=== PATIENT | male | born 1995 | race Caucasian/White ===

== ENCOUNTER 2017-02-02 18:46 | Observation (INO) ==
[2017-02-02] MEDS ORDERED: 0.9 % Sodium Chloride 1,000 ML IVC ONE (19:10)
[2017-02-02] MEDS ORDERED: *HR* Morphine 2 MG/ML SYRINGE IVP ONE ×2 (19:10→21:28)
[2017-02-02] MEDS ORDERED: Ondansetron 4 MG/2 ML VIAL IVP ONE (19:10)
--- NOTE | 2017-02-02 19:14 | Emergency Department Note ---
Disposition Clinical Impression: Appendicitis, acute Qualifiers: Acute appendicitis type: with localized peritonitis Qualified Code(s): K35.3 - Acute appendicitis with localized peritonitis Disposition: Admitted As Inpatient Abdominal Pain HPI - General Chief Complaint: ED Abdominal Pain Stated Complaint: ABD Pain Time Seen by Provider: 02/02/17 19:04 Source: patient Nursing Notes Reviewed: Yes Vital Signs Reviewed: Yes - History of Present Illness HPI Narrative: Mr. Lofton, a previously healthy 21-year-old male, presents from home by POV for evaluation of abdominal pain. Onset one hour prior to arrival. Located in these mid epigastrium with radiation to his right lower quadrant. Described as sharp, stabbing, constant. He is never experienced anything like this before. Nothing noted to relieve his symptoms. Worse when supine. Associated with nausea, vomiting. His last by mouth intake was 2 hours prior to arrival. He is still passing flatus. PMH: None PSH: None Habits: Occasional smoker, no alcohol, no illicit ROS: Positive: Nausea, vomiting, abdominal pain Negative: Fever, chills, difficulty with urination, belching, back pain, flank pain Pain Scale: 10 - Related Data Home Medications Medication Instructions Recorded Confirmed No Known Home Drugs 02/02/17 02/02/17 Allergies Allergy/AdvReac Type Severity Reaction Status Date / Time No Known Allergies Allergy Verified 02/02/17 21:46 All systems ED: reviewed and negative except as stated. Abdominal Pain PMH - Past Medical History Medical history: Reports: no medical history Male Surgical History: Reports: no surgical history Psychiatric history: Reports: no psych history - Social History Smoking status: Current every day smoker Alcohol use: Reports: none Drug use: Reports: none Physical Exam Vital Signs Reviewed General: Patient is alert, oriented, and in obvious discomfort; he is unable to find a position of comfort. HEENT: No facial asymmetry. Head is normocephalic and atraumatic. PERRLA. Trachea midline. Cardiovascular: Heart regular rate and rhythm without clicks, rubs, gallops, or murmurs. No JVD. PMI nondisplaced. Respiratory: Symmetric chest rise with good respiratory effort. Bilateral breath sounds are clear without wheezing, crackles, or rhonchi. Abdomen: Abdomen flat. Bowel sounds present normoactive x-4 quadrants. Abdomen is soft, nondistended. Periumbilical and right lower quadrant pain with guarding. Negative Rosving, negative Perryman, negative iliopsoas. Psych: Patient's affect is appropriate for situation. - General Limitations: no limitations General appearance: alert, in no apparent distress Course Course Narrative: Patient's clinical exam and story are concerning for appendicitis. CT abdomen and pelvis without contrast. Will provide IV fluids, pain control, nausea control. Laboratory work indicates leukocytosis of 18.6. CT concerning for appendicitis. I updated the patient, his mother, and father were not bedside. They have no additional questions or concerns at this time. Abdomen/Pelvis CT 02/02/17 19:11 IMPRESSION: Findings consistent with acute appendicitis. D/ / Frankie Hercules MD / Frankie Hercules MD Interpreting Provider: Frankie Hercules MD I spoke with the on-call surgeon, Dr. Hoff, who agreed to see the patient and will accept him to his service. Dr. Hoff will take the patient from the ER to the operatory room. Vital Signs Temperature 97.6 F 02/02/17 18:50 Pulse Rate 70 02/02/17 18:50 Respiratory Rate 16 02/02/17 18:50 Blood Pressure 117/78 02/02/17 18:50 O2 Sat by Pulse Oximetry 99 02/02/17 18:50 Temperature 97.9 F 02/03/17 07:01 Pulse Rate 70 02/03/17 07:01 Respiratory Rate 16 02/03/17 07:01 Blood Pressure 114/56 02/03/17 07:01 O2 Sat by Pulse Oximetry 96 02/03/17 07:01 Oxygen Delivery Oxygen Delivery Room Air Abdominal Pain - Lab Data Result diagrams: 02/03/17 04:52 02/03/17 04:52 Lab Results 02/02/17 02/02/17 02/02/17 Range/Units 19:49 19:49 19:49 WBC 18.3 H (4.3-11.1) K/mcL RBC 5.50 (4.19-5.50) M/mcL Hgb 16.7 (12.9-16.9) g/dL Hct 47.7 (37.5-50.1) % MCV 86.7 (83.0-100.0) fL MCH 30.4 (28.0-33.3) pg MCHC 35.0 (31.6-35.5) g/dL RDW 12.5 (11.5-14.5) % Plt Count 215 (140-400) K/mcL MPV 10.2 (9.4-12.4) fL Immature Gran % 0.5 (0-4) % Seg Neutrophils % 86.8 % Lymphocytes % 6.1 % Monocytes % 6.0 % Eosinophils % 0.3 % Basophils % 0.3 % Neutrophils # 15.9 H (1.6-8.9) K/mcL Lymphocytes # 1.1 (0.6-4.6) K/mcL Monocytes # 1.1 (0.0-1.3) K/mcL Eosinophils # 0.1 (0.0-0.6) K/mcL Basophils # 0.1 (0.0-0.2) K/mcL PT 13.8 H (9.4-12.1) Seconds INR 1.3 APTT 28.6 (26.0-36.0) Seconds Sodium 139 (136-145) mEq/L Potassium 3.5 (3.5-4.5) mEq/L Chloride 105 (98-109) mEq/L Carbon Dioxide 23 (19-29) mEq/L BUN 10 (8-26) mg/dL Creatinine 0.92 (0.72-1.25) mg/dL Est GFR ( Amer) > 60 (> 60) Est GFR (Non-Af Amer) > 60 (> 60) BUN/Creatinine Ratio 11 (6-26) Glucose 87 (70-99) mg/dL Calculated Osmolality 286 (280-300) Calcium 9.5 (8.6-10.8) mg/dL Total Bilirubin 1.4 H (0.2-1.2) mg/dL Direct Bilirubin 0.5 (0.0-0.5) mg/dL Indirect Bilirubin 0.9 (0.0-1.2) mg/dL AST 17 (5-34) Units/L ALT 12 (0-55) Units/L Alkaline Phosphatase 74 (38-126) Units/L Serum Total Protein 7.6 (6.0-8.3) g/dL Albumin 4.5 (3.5-5.0) g/dL Globulin 3.1 (2.4-3.5) g/dL Albumin/Globulin Ratio 1.5 (1.1-2.2) Lipase 7 L (8-78) Units/L Urine Color (Yellow) Urine Clarity (Clear) Urine pH (5.0-8.0) pH Units Ur Specific [place] (1.010-1.025) Urine Protein (Neg-Trace) mg/dL Urine Glucose (UA) (Normal) mg/dL Urine Ketones (Negative) mg/dL Urine Blood (Negative) Urine Nitrite (Negative) Urine Bilirubin (Negative) Urine Urobilinogen (Normal) mg/dL Ur Leukocyte Esterase (Negative) Urine Microscopic RBC (0-3) per hpf Urine Microscopic WBC (0-3) per hpf Ur Squamous Epith Cells (None-Few) per lpf Amorphous Sediment (Few) Urine Bacteria (None-Few) per hpf Hyaline Casts (None-Few) per lpf Ur Culture Indicated? (NO) Blood Type Antibody Screen 02/02/17 02/02/17 Range/Units 19:49 20:18 WBC (4.3-11.1) K/mcL RBC (4.19-5.50) M/mcL Hgb (12.9-16.9) g/dL Hct (37.5-50.1) % MCV (83.0-100.0) fL MCH (28.0-33.3) pg MCHC (31.6-35.5) g/dL RDW (11.5-14.5) % Plt Count (140-400) K/mcL MPV (9.4-12.4) fL Immature Gran % (0-4) % Seg Neutrophils % % Lymphocytes % % Monocytes % % Eosinophils % % Basophils % % Neutrophils # (1.6-8.9) K/mcL Lymphocytes # (0.6-4.6) K/mcL Monocytes # (0.0-1.3) K/mcL Eosinophils # (0.0-0.6) K/mcL Basophils # (0.0-0.2) K/mcL PT (9.4-12.1) Seconds INR APTT (26.0-36.0) Seconds Sodium (136-145) mEq/L Potassium (3.5-4.5) mEq/L Chloride (98-109) mEq/L Carbon Dioxide (19-29) mEq/L BUN (8-26) mg/dL Creatinine (0.72-1.25) mg/dL Est GFR ( Amer) (> 60) Est GFR (Non-Af Amer) (> 60) BUN/Creatinine Ratio (6-26) Glucose (70-99) mg/dL Calculated Osmolality (280-300) Calcium (8.6-10.8) mg/dL Total Bilirubin (0.2-1.2) mg/dL Direct Bilirubin (0.0-0.5) mg/dL Indirect Bilirubin (0.0-1.2) mg/dL AST (5-34) Units/L ALT (0-55) Units/L Alkaline Phosphatase (38-126) Units/L Serum Total Protein (6.0-8.3) g/dL Albumin (3.5-5.0) g/dL Globulin (2.4-3.5) g/dL Albumin/Globulin Ratio (1.1-2.2) Lipase (8-78) Units/L Urine Color Yellow (Yellow) Urine Clarity Turbid A (Clear) Urine pH 8.0 (5.0-8.0) pH Units Ur Specific [place] 1.030 H (1.010-1.025) Urine Protein Trace (Neg-Trace) mg/dL Urine Glucose (UA) Normal (Normal) mg/dL Urine Ketones 15 H (Negative) mg/dL Urine Blood Negative (Negative) Urine Nitrite Negative (Negative) Urine Bilirubin Negative (Negative) Urine Urobilinogen Normal (Normal) mg/dL Ur Leukocyte Esterase Negative (Negative) Urine Microscopic RBC 0-3 (0-3) per hpf Urine Microscopic WBC 0-3 (0-3) per hpf Ur Squamous Epith Cells Moderate H (None-Few) per lpf Amorphous Sediment Many H (Few) Urine Bacteria None Seen (None-Few) per hpf Hyaline Casts None Seen (None-Few) per lpf Ur Culture Indicated? NO (NO) Blood Type A POSITIVE Antibody Screen NEGATIVE Attestation Statement - Attestation Attestation: I, Brent Mccoy, examined this patient and my medical decision-making was reviewed with the [employer]OMAT[employer] PA[employer]KER/PA/Advanced Practice Nurse/Resident Physician. I agree with the documented findings, disposition and treatment plan as described except to the extent set forth below. 21-year-old male presents with concerns of right lower quadrant abdominal pain. Patient states pain started about 1-2 hours prior to arrival. Last meal was about 2-2-1/2 hours prior to arrival. Patient has significant tenderness to palpation of the right lower quadrant with rigidity and guarding. CT of the abdomen shows acute appendicitis. Patient has a leukocytosis. He is tachycardic. He was taken to the OR by Dr. Hoff for further care.
[2017-02-02 19:56] LABS: Basophils # 0.1 K/mcL (0.0-0.2); Basophils % 0.3 %; Eosinophils # 0.1 K/mcL (0.0-0.6); Eosinophils % 0.3 %; Hematocrit 47.7 % (37.5-50.1); Hemoglobin 16.7 g/dL (12.9-16.9); Immature Granulocytes % 0.5 % (0-4); Lymphocytes # 1.1 K/mcL (0.6-4.6); Lymphocytes % 6.1 %; Mean Corpuscular Hemoglobin 30.4 pg (28.0-33.3); Mean Corpuscular Volume 86.7 fL (83.0-100.0); Mean Platelet Volume 10.2 fL (9.4-12.4); Monocytes # 1.1 K/mcL (0.0-1.3); Neutrophils # 15.9 K/mcL (1.6-8.9); Platelet Count 215 K/mcL (140-400); Red Cell Distribution Width 12.5 % (11.5-14.5); Segmented Neutrophils % 86.8 %
[2017-02-02 20:07] LABS: INR 1.3; Prothrombin Time 13.8 Seconds (9.4-12.1)
[2017-02-02 20:09] LABS: Activated Partial Thrombo Time 28.6 Seconds (26.0-36.0)
[2017-02-02 20:13] LABS: Alanine Aminotransferase 12 Units/L (0-55); Albumin 4.5 g/dL (3.5-5.0); Albumin/Globulin Ratio 1.5 (1.1-2.2); Alkaline Phosphatase 74 Units/L (38-126); Aspartate Amino Transferase 17 Units/L (5-34); BUN/Creatinine Ratio 11 (6-26); Bilirubin,Direct 0.5 mg/dL (0.0-0.5); Bilirubin,Indirect 0.9 mg/dL (0.0-1.2); Bilirubin,Total 1.4 mg/dL (0.2-1.2); Blood Urea Nitrogen 10 mg/dL (8-26); Calcium 9.5 mg/dL (8.6-10.8); Carbon Dioxide 23 mEq/L (19-29); Chloride 105 mEq/L (98-109); Globulin 3.1 g/dL (2.4-3.5); Glucose 87 mg/dL (70-99); Lipase 7 Units/L (8-78); Osmolality,Calculated 286 (280-300); Potassium 3.5 mEq/L (3.5-4.5); Sodium 139 mEq/L (136-145); Total Protein 7.6 g/dL (6.0-8.3); eGFR For African Americans > 60 (> 60); eGFR For Non-African Americans > 60 (> 60)
[2017-02-02 20:26] LABS: Bilirubin,Urine Negative (Negative); Blood,Urine Negative (Negative); Clarity,Urine Turbid (Clear); Color,Urine Yellow (Yellow); Glucose,Urine (UA) Normal (Normal); Ketones,Urine 15 mg/dL (Negative); Leukocyte Esterase,Urine Negative (Negative); Nitrite,Urine Negative (Negative); Protein,Urine Trace mg/dL (Neg-Trace); Urobilinogen,Urine Normal (Normal)
[2017-02-02 20:28] LABS: Bacteria,Urine None Seen per hpf (None-Few); Hyaline Casts,Urine None Seen per lpf (None-Few); RBC,Urine 0-3 per hpf (0-3); Squamous Epithelial Cell,Urine Moderate per lpf (None-Few); WBC,Urine 0-3 per hpf (0-3)
[2017-02-02 20:39] LABS: Amorphous Sediment,Urine Many (Few)
--- NOTE | 2017-02-02 21:48 | General Surg History&Physical ---
Date of Encounter: 02/02/17 Time of Encounter: 21:40 Assessment and Plan (1) Acute appendicitis with localized peritonitis Current Visit: Yes Status: Acute The assessment and plan as outlined above was discussed with the patient and/or family members who expressed understanding and agreement. All questions were answered. The patient presented with typical history of acute appendicitis as well as CAT scan evidence of acute appendicitis and leukocytosis. Physical examination confirms localized rebound tenderness and guarding in the right lower quadrant at McBurney's point. We will plan urgent appendectomy. I discussed risks and benefits of surgery and the patient wishes to proceed History of Present Illness Chief complaint: Abdominal pain HPI: Mr. Lofton is a 21 year old male He developed abdominal pain 5 hours ago. He initially developed central abdominal pain associated with nausea. This eventually migrated and localized to the right lower quadrant. He has pain with motion and pain during ambulation. He denies shakes chills or fever. He did have nausea but no vomiting. He has no previous abdominal pain syndromes. He has had no previous abdominal surgery. He presented to the emergency room for evaluation. Evaluation demonstrated leukocytosis of 18,000 and CAT scan evidence of acute appendicitis. He now presents for urgent appendectomy Past Med Surg Social Fam HX - Past Medical History Medical history: no medical history Psychiatric history: no psych history - Social History Smoking Status: Current every day smoker Smokeless Tobacco Status: No Alcohol use: none Drug use: none Medications and Allergies No Known Home Drugs 02/02/17 [History] Allergies No Known Allergies Allergy (Verified 02/02/17 21:46) Review of Systems All systems PM: A 10-system review of systems was performed and is negative for pertinent findings except as documented above in the HPI. General Surgery Exam Initial Vital Signs Temp Pulse Resp BP Pulse Ox 97.6 F 70 16 117/78 99 02/02/17 18:50 02/02/17 18:50 02/02/17 18:50 02/02/17 18:50 02/02/17 18:50 - General physical appearance well developed, well nourished, no distress - ENT normal pinna, normal nares, normal mucosa, no hearing loss, no congestion - Neck no masses, no bruits, trachea midline, no lymphadectomy, no venous distension - Respiratory normal expansion, normal respiratory effort, clear to percussion, clear to auscultation - Cardiovascular Cardiovascular exam: Present: RRR, 15, 16 - Abdomen Abdomen general surgery: Present: tender, guarding, rebound Abdominal Tenderness: Present: RLQ - Neurologic Present: CN 2-12 grossly intact, normal coordination, normal sensation - Psychiatric Psychiatric general surgery: Present: appropriate, oriented to person, oriented to place, oriented to time, speech is normal, memory intact Results - Labs 02/02/17 19:49 02/02/17 19:49 Abnormal lab results WBC 18.3 K/mcL (4.3-11.1) H 02/02/17 19:49 Neutrophils # 15.9 K/mcL (1.6-8.9) H 02/02/17 19:49 PT 13.8 Seconds (9.4-12.1) H 02/02/17 19:49 Total Bilirubin 1.4 mg/dL (0.2-1.2) H 02/02/17 19:49 Lipase 7 Units/L (8-78) L 02/02/17 19:49 Urine Clarity Turbid (Clear) A 02/02/17 20:18 Ur Specific [place] 1.030 (1.010-1.025) H 02/02/17 20:18 Urine Ketones 15 mg/dL (Negative) H 02/02/17 20:18 Ur Squamous Epith Cells Moderate per lpf (None-Few) H 02/02/17 20:18 Amorphous Sediment Many (Few) H 02/02/17 20:18 Diabetes panel 02/02/17 Range/Units 19:49 Sodium 139 (136-145) mEq/L Potassium 3.5 (3.5-4.5) mEq/L Chloride 105 (98-109) mEq/L Carbon Dioxide 23 (19-29) mEq/L BUN 10 (8-26) mg/dL Creatinine 0.92 (0.72-1.25) mg/dL Glucose 87 (70-99) mg/dL Calcium 9.5 (8.6-10.8) mg/dL AST 17 (5-34) Units/L ALT 12 (0-55) Units/L Alkaline Phosphatase 74 (38-126) Units/L Albumin 4.5 (3.5-5.0) g/dL Calcium panel 02/02/17 Range/Units 19:49 Calcium 9.5 (8.6-10.8) mg/dL Albumin 4.5 (3.5-5.0) g/dL Pituitary panel 02/02/17 Range/Units 19:49 Sodium 139 (136-145) mEq/L Potassium 3.5 (3.5-4.5) mEq/L Chloride 105 (98-109) mEq/L Carbon Dioxide 23 (19-29) mEq/L BUN 10 (8-26) mg/dL Creatinine 0.92 (0.72-1.25) mg/dL Glucose 87 (70-99) mg/dL Calcium 9.5 (8.6-10.8) mg/dL Adrenal panel 02/02/17 Range/Units 19:49 Sodium 139 (136-145) mEq/L Potassium 3.5 (3.5-4.5) mEq/L Chloride 105 (98-109) mEq/L Carbon Dioxide 23 (19-29) mEq/L BUN 10 (8-26) mg/dL Creatinine 0.92 (0.72-1.25) mg/dL Glucose 87 (70-99) mg/dL Calcium 9.5 (8.6-10.8) mg/dL Total Bilirubin 1.4 H (0.2-1.2) mg/dL AST 17 (5-34) Units/L ALT 12 (0-55) Units/L Alkaline Phosphatase 74 (38-126) Units/L Albumin 4.5 (3.5-5.0) g/dL All other labs normal. - Imaging CT scan - abdomen: image reviewed (I personally reviewed the CAT scan abdomen. The appendix is dilated with periappendiceal inflammation)
--- NOTE | 2017-02-02 21:49 | Anesthesia Evaluation PreOp ---
Date of Encounter: 02/02/17 Time of Encounter: 22:10 - Past History Planned Operation: Lap Appy Cardiac History: Denies any Significant Hx Pulmonary History: Smoker INVASIVE MANAGER History: Denies Any Significant HX Other Medical History: Denies Any Significant HX Anesthesia History: Past Anesthesia (No prior GA), MH ( NO FamHx of MH) Alcohol Use: none Drug use: marijuana (Daily MJ) Medications and Allergies No Known Home Drugs 02/02/17 [History] Allergies No Known Allergies Allergy (Verified 02/02/17 21:46) - Meds/Allergy Pre-op Review Medications Reviewed: Yes Allergies Reviewed: Yes Beta Blockers on Current Med List: No Anesthesia Results - Labs 02/02/17 19:49 02/02/17 19:49 Laboratory Results Impressions Abdomen/Pelvis CT 02/02/17 19:11 IMPRESSION: Findings consistent with acute appendicitis. D/ / Frankie Hercules MD / Frankie Herculse MD Interpreting Provider: Frankie Hercules MD Anesthesia Exam Vital Signs/O2 Sat/Glucose, Most Current O2 Sat Height 1.8 m Weight 65.771 kg O2 Sat by Pulse Oximetry 99 Vital Signs Temp Pulse Resp BP Pulse Ox 97.6 F 70 16 117/78 99 02/02/17 18:50 02/02/17 18:50 02/02/17 18:50 02/02/17 18:50 02/02/17 18:50 Height: 5'11" Weight: 145# BMI = 20 - HEENT Pupil (Motor): Pupils equal, EOMI Mallampati: II Teeth: Normal Oral Opening: Greater than 3 - INVASIVE MANAGER LOC: Oriented INVASIVE MANAGER Motor: Normal RUE, Normal LUE, Normal RLE, Normal LLE, Normal Face INVASIVE MANAGER Sensory: Normal: RUE, LUE, RLE, LLE, Face - Cardiac Rhythm: Regular Murmur: None - Pulmonary Breath Sounds: bilateral Clear Respiratory Effort: Symmetrical Anesthesia Assess/Plan ASA Score: 2, E Modified Anali Scale for Level of Consciousness: Cooperative, oriented, and tranquil Anesthetic Plan: General Monitoring Plan: Standard Monitors Recovery Plan: PACU Anes Supervising Prov Stmt: Pt seen/evaluated, R&B Discussed, questions answered and consent obtained. - MD Diane
[2017-02-02] MEDS ORDERED: Ringers Solution, Lactated 1,000 ML ONE (21:55)
[2017-02-02] MEDS ORDERED: Albuterol 2.5 MG/3 ML NEBULIZER IH ONE (21:59)
[2017-02-02] MEDS ORDERED: Albuterol 2.5 MG/3 ML NEBULIZER ONE (21:59)
[2017-02-02] MEDS ORDERED: *HR* Succinylcholine 200 MG/10 ML VIAL IVP ONE (22:00)
[2017-02-02] MEDS ORDERED: *HR* Rocuronium Bromide 50 MG/5 ML VIAL ONE (22:00)
[2017-02-02] MEDS ORDERED: Lidocaine -MPF 4% 5 ML AMPUL ONE (22:00)
[2017-02-02] MEDS ORDERED: Lidocaine -MPF 2% 2 ML VIAL ONE ×2 (22:00→22:01)
[2017-02-02] MEDS ORDERED: CefOXitin 2,000 MG VIAL IVPB ONE (22:01)
[2017-02-02] MEDS ORDERED: *HR* Midazolam HCl 2 MG/2 ML VIAL ONE (22:01)
[2017-02-02] MEDS ORDERED: CefOXitin 1,000 MG VIAL ONE (22:01)
[2017-02-02] MEDS ORDERED: *HR* Propofol 200 MG/20 ML VIAL IVP ONE (22:01)
[2017-02-02] MEDS ORDERED: *HR* FentaNYL (PF) 100 MCG/2 ML VIAL ONE (22:01)
[2017-02-02] MEDS ORDERED: Acetaminophen IV 1,000 MG/100 ML INFUS..BTL ONE (22:19)
[2017-02-02] MEDS ORDERED: Famotidine 20 MG/2 ML VIAL ONE (22:28)
[2017-02-02] MEDS ORDERED: Dexamethasone 4 MG/ML VIAL ONE (23:00)
[2017-02-02] MEDS ORDERED: Ondansetron 4 MG/2 ML VIAL ONE (23:00)
[2017-02-02] MEDS ORDERED: Ketorolac 30 MG/ML VIAL ONE ×2 (23:08)
[2017-02-02] MEDS ORDERED: Neostigmine Methylsulfate 3 MG/3 ML SYRINGE ONE (23:08)
[2017-02-02] MEDS ORDERED: *HR* HYDROmorphone 2 MG/ML SYRINGE ONE (23:15)
--- NOTE | 2017-02-02 23:31 | Operative Note ---
Date of procedure: 02/02/17 Pre-op diagnosis: Acute appendicitis Post-op diagnosis: same Procedure: Laparoscopic appendectomy Anesthesia: KEILA Surgeon: Warner Hoff Estimated blood loss (cc): 10 Specimen: Appendix Condition: stable Disposition: PACU Procedure in Detail: After informed consent patient was taken major suite and placed supine position and given adequate anesthetic. The abdomen is prepped and draped in sterile fashion utilizing ChloraPrep standard draping techniques. Time out is taken patient was identified. Made a vertical midline incision below the umbilicus and dissected down fashion. 2 traction stitches were placed. Abdomen was entered initially. I placed a Ahmadi trocar. The patient had a necrotic appendix that was retrocecal. The cecum was mobilized by dividing the lateral peritoneal attachments. The blood supply to the appendix was spread out as is typical for retrocecal appendicitis. The appendix was divided off the base of the cecum with a gastrointestinal load for the laparoscopic stapler. The blood supply was divided with 3 loads of vascular carlos. All staple lines were intact and there was no bleeding. The appendix was recovered for pathologic evaluation. I irrigated with copious amounts of antibiotic containing solution. There is no evidence of bleeding or staple line leak. All trochars were removed fascia was closed with 0 Vicryl skin with 2-0 Vicryl and 4-0 Vicryl.
[2017-02-02] MEDS ORDERED: *HR* Labetalol 20 MG/4 ML SYRINGE IVP PRN (23:49)
[2017-02-02] MEDS ORDERED: *HR* Promethazine 25 MG/ML VIAL IVP PRN (23:49)
[2017-02-02] MEDS ORDERED: *HR* HYDROmorphone (PF) 1 MG/ML SYRINGE IVP PRN (23:49)
--- NOTE | 2017-02-03 00:25 | Anesthesia Evaluation Post Op ---
Date of Encounter: 02/03/17 Time of Encounter: 00:24 - Vital Signs Vital Signs: Vital Signs/O2 Sat/Glucose, Most Current Temp Pulse Resp BP Pulse Ox 02/03/17 00:07 98.3 F 73 16 128/63 98 02/02/17 23:57 61 12 108/66 98 02/02/17 23:47 66 12 103/68 97 02/02/17 23:37 99.1 F 67 18 93/55 97 02/02/17 21:53 18 125/84 - Lungs Lungs: Clear Ascult./Percussion - Airway Airway: Non-obstructed - Cardiovascular Regular Rate - Mental Status Mental Status: Alert & Oriented, Answers Appropriately - Pain Pain Scale: 0 Pain Scale used: Numeric (1 - 10) - Nausea Vomiting Nausea Vomiting: Not Present - Hydration Hydration: Ice chips, Has not voided - Discharge PostOp Status: Transfer Patient to floor Anes Supervising Prov Stmt: Pt seen/evaluated, VSS and pt has met criteria for discharge to floor. - MD Diane
[2017-02-03] MEDS ORDERED: *HR* HYDROmorphone (PF) 1 MG/ML SYRINGE IVP PRN ×2 (00:28→14:20)
[2017-02-03] MEDS ORDERED: Ondansetron 4 MG/2 ML VIAL IVP PRN (00:28)
[2017-02-03] MEDS ORDERED: cefOXitin 2,000 MG in D5% in Water (Mini-Bag+) 100 ML IVPB SCH (00:28)
[2017-02-03] MEDS: 0.9 % Sodium Chloride 1,000 ML IVC SCH ×2 (01:16→21:26)
[2017-02-03] MEDS: *HR* OxyCODONE/APAP 5/325 TABLET PO PRN ×5 (01:22→22:24)
[2017-02-03] MEDS: cefOXitin 2,000 MG in D5% in Water (Mini-Bag+) 100 ML IVPB SCH ×3 (05:10→22:21)
[2017-02-03 05:16] LABS: Hematocrit 42.7 % (37.5-50.1); Hemoglobin 14.7 g/dL (12.9-16.9); Mean Corpuscular HGB Conc 34.4 g/dL (31.6-35.5); Mean Corpuscular Hemoglobin 30.1 pg (28.0-33.3); Mean Corpuscular Volume 87.3 fL (83.0-100.0); Mean Platelet Volume 10.1 fL (9.4-12.4); Platelet Count 243 K/mcL (140-400); Red Blood Count 4.89 M/mcL (4.19-5.50); Red Cell Distribution Width 12.4 % (11.5-14.5)
[2017-02-03 05:26] LABS: BUN/Creatinine Ratio 10 (6-26); Blood Urea Nitrogen 9 mg/dL (8-26); Calcium 9.1 mg/dL (8.6-10.8); Carbon Dioxide 21 mEq/L (19-29); Chloride 105 mEq/L (98-109); Glucose 157 mg/dL (70-99); Osmolality,Calculated 280 (280-300); Potassium 4.4 mEq/L (3.5-4.5); Sodium 134 mEq/L (136-145); eGFR For African Americans > 60 (> 60); eGFR For Non-African Americans > 60 (> 60)
[2017-02-03 07:31] LABS: Neutrophils # 23.5 K/mcL (1.6-8.9); Platelet Estimate Normal (Normal)
--- NOTE | 2017-02-03 14:11 | General Surgery Progress Note ---
<Julisa Wilson - Last Filed: 02/03/17 14:09> Date of Encounter: 02/03/17 Time of Encounter: 14:00 - Assessment and Plan (1) Appendicitis, acute Current Visit: Yes Status: Acute POD #1 Laparoscopic appendectomy IV antibiotics- Cefoxitin IV fluids- 50ml/hour Supportive care and pain control Increase activity as tolerated- ambulate in hallways Repeat am labs Qualifiers: Acute appendicitis type: with localized peritonitis Qualified Code(s): K35.3 - Acute appendicitis with localized peritonitis (2) Leukocytosis Current Visit: Yes Status: Acute Continue IV antibiotics through today- Cefoxitin Repeat am labs Qualifiers: Leukocytosis type: bandemia Qualified Code(s): D72.825 - Bandemia (3) DVT prophylaxis Current Visit: Yes Status: Acute Ambulate hallways TID Subjective Patient reports: feels better, still having pain (post surgical- well controlled ), tolerating liquids well, voiding w/o difficulty, flatus, afebrile Objective Vital Signs - Last 8 Hours Temp Pulse Resp BP Pulse Ox 02/03/17 11:47 98.0 F 71 16 105/60 95 02/03/17 07:01 97.9 F 70 16 114/56 96 Intake and Output 02/02/17 02/03/17 02/03/17 23:59 07:59 15:59 Intake Total 100 / 100 120 / 120 Output Total 20 / 20 Balance -20 / -20 100 / 100 120 / 120 Intake: IV Fluids 100 / 100 Mefoxin 2,000 MG In 100 / 100 Dextrose 5% (Minibag+) 100 ML 100 ML @ 200 mls/ hr IVPB Q8H [facility] Rx#: [id number] Oral 120 / 120 Output: Estimated Blood Loss 20 / 20 Other: Meal Lunch Percent of Meal Consumed 0% Weight 71.35 kg Patient Weight 02/03/17 23:59 Weight 71.35 kg - General physical appearance well developed, well nourished, no distress - Eyes normal ocular movement - ENT normal mucosa, atraumatic, normocephalic - Neck Neck exam: trachea midline - Respiratory normal respiratory effort, clear to auscultation - Cardiovascular Cardiovascular exam: Present: RRR - Abdomen Abdomen: Present: bowel sounds present, soft, tender (Expected postoperative tenderness) - Incision Incision: Present: clean and dry, intact - Neurologic CN 2-12 grossly intact - Psychiatric oriented to time, oriented to person, oriented to place, speech is normal, memory intact - Labs 02/03/17 04:52 02/03/17 04:52 Diabetes panel 02/03/17 Range/Units 04:52 Sodium 134 L (136-145) mEq/L Potassium 4.4 (3.5-4.5) mEq/L Chloride 105 (98-109) mEq/L Carbon Dioxide 21 (19-29) mEq/L BUN 9 (8-26) mg/dL Creatinine 0.86 (0.72-1.25) mg/dL Glucose 157 H (70-99) mg/dL Calcium 9.1 (8.6-10.8) mg/dL Calcium panel 02/03/17 Range/Units 04:52 Calcium 9.1 (8.6-10.8) mg/dL Pituitary panel 02/03/17 Range/Units 04:52 Sodium 134 L (136-145) mEq/L Potassium 4.4 (3.5-4.5) mEq/L Chloride 105 (98-109) mEq/L Carbon Dioxide 21 (19-29) mEq/L BUN 9 (8-26) mg/dL Creatinine 0.86 (0.72-1.25) mg/dL Glucose 157 H (70-99) mg/dL Calcium 9.1 (8.6-10.8) mg/dL Adrenal panel 02/03/17 Range/Units 04:52 Sodium 134 L (136-145) mEq/L Potassium 4.4 (3.5-4.5) mEq/L Chloride 105 (98-109) mEq/L Carbon Dioxide 21 (19-29) mEq/L BUN 9 (8-26) mg/dL Creatinine 0.86 (0.72-1.25) mg/dL Glucose 157 H (70-99) mg/dL Calcium 9.1 (8.6-10.8) mg/dL - VTE Documentation of Mechanical Device: Intermittent pneumatic compression device Consult Discharge Plan - Plan Referrals: NO,PCP [Primary Care Provider] - - Attending Attestation I examined this patient and my medical decision-making was reviewed with the [employer] GUN HAND/PA/Advanced Practice Nurse/Resident Physician. I agree with the documented findings, disposition and treatment plan as described except to the extent set forth below. <Luis Eduardo,Warner T - Last Filed: 02/03/17 16:54> Date of Encounter: 02/03/17 - Assessment and Plan (1) Acute appendicitis with localized peritonitis Current Visit: Yes Status: Acute Objective Vital Signs - Last 8 Hours Temp Pulse Resp BP Pulse Ox 02/03/17 15:13 98.2 F 92 17 110/58 96 02/03/17 11:47 98.0 F 71 16 105/60 95 Intake and Output 02/03/17 02/03/17 02/03/17 07:59 15:59 23:59 Intake Total 100 / 100 120 / 120 Balance 100 / 100 120 / 120 Intake: IV Fluids 100 / 100 Mefoxin 2,000 MG In 100 / 100 Dextrose 5% (Minibag+) 100 ML 100 ML @ 200 mls/ hr IVPB Q8H [facility] Rx#: [id number] Oral 120 / 120 Other: Meal Lunch Percent of Meal Consumed 0% Weight 71.35 kg Patient Weight 02/03/17 23:59 Weight 71.35 kg - Labs 02/03/17 04:52 02/03/17 04:52 Diabetes panel 02/03/17 Range/Units 04:52 Sodium 134 L (136-145) mEq/L Potassium 4.4 (3.5-4.5) mEq/L Chloride 105 (98-109) mEq/L Carbon Dioxide 21 (19-29) mEq/L BUN 9 (8-26) mg/dL Creatinine 0.86 (0.72-1.25) mg/dL Glucose 157 H (70-99) mg/dL Calcium 9.1 (8.6-10.8) mg/dL Calcium panel 02/03/17 Range/Units 04:52 Calcium 9.1 (8.6-10.8) mg/dL Pituitary panel 02/03/17 Range/Units 04:52 Sodium 134 L (136-145) mEq/L Potassium 4.4 (3.5-4.5) mEq/L Chloride 105 (98-109) mEq/L Carbon Dioxide 21 (19-29) mEq/L BUN 9 (8-26) mg/dL Creatinine 0.86 (0.72-1.25) mg/dL Glucose 157 H (70-99) mg/dL Calcium 9.1 (8.6-10.8) mg/dL Adrenal panel 02/03/17 Range/Units 04:52 Sodium 134 L (136-145) mEq/L Potassium 4.4 (3.5-4.5) mEq/L Chloride 105 (98-109) mEq/L Carbon Dioxide 21 (19-29) mEq/L BUN 9 (8-26) mg/dL Creatinine 0.86 (0.72-1.25) mg/dL Glucose 157 H (70-99) mg/dL Calcium 9.1 (8.6-10.8) mg/dL - Attending Attestation The patient is seen and evaluated on morning rounds. Although the patient feels better and his vital signs are stable his white blood cell count went up. I think it is reasonable to continue IV antibiotics for at least another 24 hours and monitor his CBC tomorrow morning. We will advance his diet. Incisions are clean and dry. Warner Hoff MD FACS
[2017-02-03] MEDS ORDERED: Acetaminophen 325 MG TABLET PO PRN (14:20)
[2017-02-04] MEDS: *HR* OxyCODONE/APAP 5/325 TABLET PO PRN ×2 (02:56→09:54)
[2017-02-04 03:11] LABS: Basophils % 0.3 %; Eosinophils # 0.1 K/mcL (0.0-0.6); Eosinophils % 0.7 %; Immature Granulocytes % 0.4 % (0-4); Lymphocytes # 1.8 K/mcL (0.6-4.6); Mean Corpuscular HGB Conc 34.5 g/dL (31.6-35.5); Mean Corpuscular Hemoglobin 30.8 pg (28.0-33.3); Mean Corpuscular Volume 89.2 fL (83.0-100.0); Mean Platelet Volume 10.3 fL (9.4-12.4); Monocytes # 1.3 K/mcL (0.0-1.3); Neutrophils # 8.2 K/mcL (1.6-8.9); Platelet Count 178 K/mcL (140-400); Red Blood Count 4.26 M/mcL (4.19-5.50); Red Cell Distribution Width 12.8 % (11.5-14.5); Segmented Neutrophils % 71.6 %
[2017-02-04 03:12] LABS: Hemoglobin 13.1 g/dL (12.9-16.9)
[2017-02-04] MEDS: cefOXitin 2,000 MG in D5% in Water (Mini-Bag+) 100 ML IVPB SCH (05:38)
[2017-02-04 11:16] VITALS: BP 107/64
--- NOTE | 2017-02-04 13:27 | Discharge Summary ---
<Julisa Wilson Talia - Last Filed: 02/04/17 13:22> Date of Encounter: 02/04/17 Time of Encounter: 13:00 - Discharge Diagnosis (1) Appendicitis, acute Priority: Primary Status: Resolved Qualifiers: Acute appendicitis type: with localized peritonitis Qualified Code(s): K35.3 - Acute appendicitis with localized peritonitis (2) Leukocytosis Priority: Secondary Status: Acute Qualifiers: Leukocytosis type: bandemia Qualified Code(s): D72.825 - Bandemia - Discharge Medications Prescriptions: OxyCODONE/APAP 5/325 [Percocet 5/325 MG] 1 each PO Q4HR PRN #30 tablet PRN Reason: Moderate Pain Ciprofloxacin HCl [Cipro] 500 mg PO BID #14 tablet metroNIDAZOLE [Flagyl] 500 mg PO BID #14 tablet Home Medications: Ciprofloxacin HCl [Cipro] 500 mg PO BID #14 tablet 02/04/17 [Rx] OxyCODONE/APAP 5/325 [Percocet 5/325 MG] 1 each PO Q4HR PRN #30 tablet 02/04/17 [Rx] metroNIDAZOLE [Flagyl] 500 mg PO BID #14 tablet 02/04/17 [Rx] Allergies/Adverse Reactions: Allergies No Known Allergies Allergy (Verified 02/02/17 21:46) General Surgery Exam Initial Vital Signs Temp Pulse Resp BP Pulse Ox 97.6 F 70 16 117/78 99 02/02/17 18:50 02/02/17 18:50 02/02/17 18:50 02/02/17 18:50 02/02/17 18:50 - General physical appearance well developed, well nourished, no distress - Eyes normal ocular movement - ENT normal mucosa, atraumatic, normocephalic - Neck trachea midline - Respiratory normal respiratory effort, clear to auscultation - Cardiovascular Cardiovascular exam: Present: RRR - Abdomen Abdomen general surgery: Present: bowel sounds present, soft, tender (minimal, expected post-operative tenderness) - Incision Incision: Present: clean and dry, intact - Integumentary Integumentary general surgery: Present: warm and dry - Neurologic Present: CN 2-12 grossly intact - Musculoskeletal Present: normal gait, normal posture - Psychiatric Psychiatric general surgery: Present: appropriate, oriented to person, oriented to place, oriented to time, speech is normal, memory intact Date of admission: 02/02/17 22:03 Primary care physician: PCP RUBIN Discharging clinician: Warner Hoff (Jamari Wilson) Anticipated date of discharge: 02/04/17 - Patient Status Disposition: Home, Self-Care Condition: Good Functional capacity at discharge: independent ambulation Overall status at discharge: patient is progressing back to baseline - Discharge Instructions Instructions: Appendicitis (DC), Laparoscopic Appendectomy (DC) Follow Up With: RUBIN,PCP [Primary Care Provider] - Julisa Wilson GALLERY ASSISTANT [Advanced Practice Nurse] - 02/15/17 10:45 am (surgery follow-up) Forms: Work/School Release Additional Instructions: #1 may shower, no tub bath or swimming for 2 weeks #2 wash incisions with soap and water and pat dry daily #3 no lifting, pushing, pulling more than 15 pounds for the next 2 weeks #4 no driving until off narcotics for 24 hours and able to safely react in the car #5 may climb stairs - Diet and Activity Activity: increase activity as tolerated Diet: advance to your usual diet - Hospital Course Hospital course: Mr. Lofton is a 21 year old male presented to the hospital with complaints of abdominal pain. The patient was found to have acute appendicitis and he was taken to the operating room for a laparoscopic appendectomy with Dr. Mcgovern. He did have fecal contamination and was continued on IV antibiotics postoperatively. He did have a elevated white blood cell count which has significantly improved with continued IV antibiotic. On postoperative day #2, he is tolerating a regular diet without nausea or vomiting. His vital signs are stable and he is afebrile. His pain is well-controlled. He is voiding and ambulating without difficulty. His white blood cell count is trending towards normal. We will begin discharge planning and plan for outpatient follow-up in the next 10-14 days. - Time Spent with Patient Total time spent providing and/or coordinating discharge services: Less than 30 minutes Labs on day of discharge: Labs from last 24 hours 02/04/17 02:48 WBC 11.5 H D RBC 4.26 Hgb 13.1 D Hct 38.0 MCV 89.2 MCH 30.8 MCHC 34.5 RDW 12.8 Plt Count 178 MPV 10.3 Immature Gran % 0.4 Seg Neutrophils % 71.6 Lymphocytes % 16.0 Monocytes % 11.0 Eosinophils % 0.7 Basophils % 0.3 Neutrophils # 8.2 Lymphocytes # 1.8 Monocytes # 1.3 Eosinophils # 0.1 Basophils # 0.0 - Attending Attestation I examined this patient and my medical decision-making was reviewed with the FUEL CELL BUILDER/PA/Advanced Practice Nurse/Resident Physician. I agree with the documented findings, disposition and treatment plan as described except to the extent set forth below. <Warner Hoff - Last Filed: 02/05/17 16:22> Date of Encounter: 02/04/17 - Discharge Diagnosis (1) Acute appendicitis with localized peritonitis Status: Acute General Surgery Exam Initial Vital Signs Temp Pulse Resp BP Pulse Ox 97.6 F 70 16 117/78 99 02/02/17 18:50 02/02/17 18:50 02/02/17 18:50 02/02/17 18:50 02/02/17 18:50 Date of admission: 02/02/17 22:03 Primary care physician: PCP NO - Hospital Course Hospital course: Mr. Lofton is a 21 year old male - Time Spent with Patient Total time spent providing and/or coordinating discharge services: - Attending Attestation The patient is seen and evaluated on morning rounds. His white blood cell count is return to normal and he should do well with discharge home later had. I will follow him as an outpatient in 1-2 weeks. Warner Hoff MD FACS
== END 2017-02-04 14:10 | disposition home or self-care (01) ==
LOC: 3BNU 18:46 → EMEROO 18:46 → 3BNU 22:09
PROVIDERS: ADMIT Surgery; ATTEND Surgery